=== PATIENT | female | born 1960 | race Caucasian/White ===

== ENCOUNTER 2019-11-29 06:33 | Emergency (ER) | payer BC, OTHER ==
[2019-11-29 06:41] VITALS: BP 151/82; PULSE 90; RESP 18; TEMP 98
[2019-11-29] MEDS ORDERED: LIDOCAINE 1% INJ 10MG/ML (20 ML MDV) SQ ONE (06:47)
[2019-11-29] MEDS ORDERED: DIPH,PERTUS(ACELL)TETVAC-LF 0.5 ML VIAL IM ONE (06:47)
--- NOTE | 2019-11-29 07:12 | ED ---
Wound/Laceration HPI - General Chief Complaint: Wound/Laceration Stated Complaint: hand lac Time Seen by Provider: 11/29/19 06:42 Source: patient, RN notes reviewed Mode of arrival: ambulatory Limitations: no limitations - History of Present Illness Initial Comments: This is a 59-year-old female presents emergency Department with chief complaint of left hand laceration. Patient states that she was using a picker box operator and states that she cut through a box and into her hand. Patient is right-hand dominant she is unsure when her last tetanus was. Patient denies any decreased range of motion or paresthesias. Patient denies any other injuries at this time. - Related Data Home Medications Medication Instructions Recorded Confirmed No Known Home Medications 06/20/14 06/20/14 Allergies Allergy/AdvReac Type Severity Reaction Status Date / Time No Known Allergies Allergy Verified 06/20/14 09:47 Review of Systems ROS Statement: Those systems with pertinent positive or pertinent negative responses have been documented in the HPI. ROS Other: All systems not noted in ROS Statement are negative. Past Medical History Additional Past Medical History / Comment(s): LOOSE BOWEL MOVEMENTS History of Any Multi-Drug Resistant Organisms: None Reported Past Surgical History: Orthopedic Surgery Additional Past Surgical History / Comment(s): LEFT KNEE ARTHROSCOPY Past Anesthesia/Blood Transfusion Reactions: No Reported Reaction, Motion Sickness Past Psychological History: No Psychological Hx Reported Smoking Status: Former smoker Past Alcohol Use History: None Reported Past Drug Use History: None Reported General Exam Limitations: no limitations General appearance: alert, in no apparent distress Head exam: Present: atraumatic, normocephalic, normal inspection Respiratory exam: Present: normal lung sounds bilaterally. Absent: respiratory distress, wheezes, rales, rhonchi, stridor Cardiovascular Exam: Present: regular rate, normal rhythm, normal heart sounds. Absent: systolic murmur, diastolic murmur, rubs, gallop, clicks Extremities exam: Present: other (Left hand thenar eminence region there is 4 cm laceration patient has full strength neurovascular intact there is no tendon involvement. Cap refill less than 2 seconds) Course Vital Signs 11/29/19 06:36 Temperature 98 F Pulse Rate 90 Respiratory 18 Rate Blood Pressure 151/82 O2 Sat by Pulse 96 Oximetry Procedures - Laceration Laceration #1 Consent Obtained: verbal consent Site: hand (Left hand thenar eminence region) Size (cm): 4 Description: linear Depth: simple, single layer Anesthetic Used: lidocaine 1%, without epi Anesthesia Technique: local infiltration Amount (mls): 7 Pre-repair: wound explored, irrigated extensively, deep structures intact Type of Sutures: nylon Size of Sutures: 4-0 Number of Sutures: 8 Technique: simple, interrupted Patient Tolerated Procedure: well, no complications Medical Decision Making - Medical Decision Making Patient had a simple laceration to left hand, tetanus was updated, it was closed with no comp patients using sutures. Wound care and return parameters were given. Disposition Clinical Impression: Laceration of left hand Disposition: HOME SELF-CARE Condition: Stable Instructions (If sedation given, give patient instructions): Care For Your Stitches (ED), Laceration (ED) Additional Instructions: Have sutures removed in 10-14 days.Please return to the Emergency Department if symptoms worsen or any other concerns. Is patient prescribed a controlled substance at d/c from ED?: No Referrals: Ines Bejarano MD [Primary Care Provider] - 1-2 days Time of Disposition: 07:12
== END 2019-11-29 07:40 | disposition home or self-care (01) ==
LOC: EC 06:33
DX: S61.412A Laceration without foreign body of left hand, initial encounter (principal); Z87.891 Personal history of nicotine dependence; Z23 Encounter for immunization; W26.0XXA Contact with knife, initial encounter; Y93.89 Activity, other specified
CPT/HCPCS: 90715; 99282; 12002; 90471; J2001

== ENCOUNTER → 2020-12-06 | Outpatient (CLI) | payer OTHER ==
--- NOTE | 2020-12-06 12:33 | EST ---
EXERCISE STRESS AGE: 60 SEX: Female HT: 5'7" WT: 230 lbs. PROTOCOL: Dontrell STAGE: 3 DURATION OF EXERCISE: 9 minutes HEART RATE REST: 82 BLOOD PRESSURE REST: 148/79 MAXIMUM HEART RATE ACHIEVED: 164 MAXIMUM BLOOD PRESSURE: 196/51 85% MPHR: 133 100% MPHR: 159 METS: 10.3 INDICATIONS: Evaluate for CAD in a patient with chest pain. CLINICAL INFORMATION: Baseline EKG revealed normal sinus rhythm with nonspecific ST-T abnormality. Patient walked on a standard Dontrell protocol for 9 minutes and achieved a maximal heart rate of 164 beats per minute. The patient did not have any significant symptoms. As she exercised, patient developed atrial fibrillation which was paroxysmal, self-limiting, but lasted for about 1 or 2 minutes in the exercise and then she went back into sinus rhythm. Nonspecific ST-T changes were noted. Peak blood pressure was 196/51. By EKG criteria, this is an inconclusive stress test because of nonspecific ST-T changes to begin with and paroxysmal atrial fibrillation during the stress test. At the end of the test, she was back in sinus rhythm. She had no significant symptoms. FINAL IMPRESSION: 1. By EKG criteria, this is considered an inconclusive stress test with fair exercise capacity. 2. Paroxysmal episodes of atrial fibrillation were noted during exercise. 3. The patient will benefit from a 24 hour Holter monitor for further surveillance. MMODL / IJN: [id number] /
== END | disposition home or self-care (01) ==
LOC: RADNMMAIN 08:44
PROVIDERS: ATTEND Family Medicine
DX: I48.0 Paroxysmal atrial fibrillation (principal)
CPT/HCPCS: 93017

== ENCOUNTER → 2021-04-17 | Outpatient (CLI) | payer OTHER ==
--- NOTE | 2021-04-19 13:41 | MM ---
Reason for exam: screening (asymptomatic). Last mammogram was performed 5 years and 2 months ago. History: Patient is postmenopausal. Family history of breast cancer in mother at age 50. Took hormonal contraceptives for 6 years. Physical Findings: A clinical breast exam by your physician is recommended on an annual basis and results should be correlated with mammographic findings. MG 3D Screening Mammo W/Cad Bilateral CC and MLO view(s) were taken. Prior study comparison: February 23, 2016, bilateral MG 3d screening mammo w/cad. The breast tissue is almost entirely fat. No significant changes when compared with prior studies. ASSESSMENT: Benign, BI-RAD 2 RECOMMENDATION: Routine screening mammogram of both breasts in 1 year.
--- NOTE | 2021-04-23 13:00 | BD ---
EXAMINATION TYPE: Axial Bone Density DATE OF EXAM: 04/17/2021 COMPARISON: NONE CLINICAL HISTORY: Osteoporosis Height: 67 Weight: 224.7 FRAX RISK QUESTIONS: Alcohol (3 or more units per day): no Family History (Parent hip fracture): no Glucocorticoids (More than 3mos): no (Ex: prednisone, prednisolone, methylprednisolone, dexamethasone, and hydrocortisone). History of Fracture in Adulthood: no Secondary Osteoporosis: 1. Type 1 Diabetes: no 2. Hyperthyroidism: no 3. Menopause before 45: no 4. Malnutrition: yes 5. Chronic liver disease: no Rheumatoid Arthritis: no Current Tobacco Use: no RISK FACTORS HISTORY OF: Surgery to Spine/Hip(right/left)/Wrist (right/left): no Family History of Osteoporosis: no Active: yes Diet low in dairy products/other sources of calcium: no Postmenopausal woman: age 45 Lost more than 2 inches in height since high school: no MEDICATIONS: balsalazide, paxil, iron Additional History: EXAM MEASUREMENTS: Bone mineral densitometry was performed using the [employer] System. Bone mineral density as measured about the Lumbar spine is: ----- L1-L4(G/cm2): 1.134 T Score Values are as follows: ----- L2: -0.6 ----- L3: 0.0 ----- L4: 0.1 ----- L1-L4: -0.4 Bone mineral density : baseline Bone mineral density about the R hip (g/cm2): 0.903 Bone mineral density about the L hip (g/cm2): 0.913 T Score values are as follows: -----R Neck: -1.0 -----L Neck: -0.9 -----R Total: -0.1 -----L Total: -0.4 Bone mineral density : baseline IMPRESSION: Osteopenia (T Score between -2.5 and -1). There is slightly increased risk of fracture and the patient may be considered for treatment. Re-Screen 2-5 years. NOTE: T-SCORE=SD OF THE YOUNG ADULT MEAN. MTDD
== END | disposition home or self-care (01) ==
LOC: RADMAMWWP 09:33
PROVIDERS: ATTEND Family Medicine
DX: Z12.31 Encounter for screening mammogram for malignant neoplasm of breast (principal); Z78.0 Asymptomatic menopausal state; Z80.3 Family history of malignant neoplasm of breast; M85.80 Other specified disorders of bone density and structure, unspecified site
CPT/HCPCS: 77063; 77067; 77080

== ENCOUNTER 2021-05-11 10:11 | Day surgery (SDC) | payer OTHER ==
[2021-05-09 12:50] VITALS: BMI 34.4
[~2021-05-11 10:11] MED LIST: LACTATED RINGERS 1,000 ML IV SCH
[2021-05-11 10:34] VITALS: RESP 16; TEMP 97.5
[2021-05-11] MEDS ORDERED: LIDOCAINE 1% INJ 10MG/ML (20 ML MDV) ONE (11:29)
[2021-05-11] MEDS ORDERED: PROPOFOL 10 MG/ML 20 ML VIAL IV ONE (11:29)
--- NOTE | 2021-05-11 12:08 | P.PCN ---
Date of Procedure: 05/11/21 Procedure(s) Performed: BRIEF HISTORY: Patient is a he [id number] pleasant white female scheduled for an elective colonoscopy as a part of surveillance of ulcerative colitis diagnosed in 2013. She remains in clinical remission. She is scheduled for a surveillance colonoscopy today. PROCEDURE PERFORMED: Colonoscopy with biopsy and snare polypectomy. PREOPERATIVE DIAGNOSIS: Surveillance of ulcerative colitis diagnosed in 1999. IV sedation per Anesthesia. PROCEDURE: After informed consent was obtained, the patient, was brought into the endoscopy unit. IV sedation was administered by Anesthesia under continuous monitoring. Digital rectal examination was normal. Initially the Olympus CF-160 flexible video colonoscope was then inserted in the rectum, gradually advanced into the cecum without any difficulty. Careful examination was performed as the scope was gradually being withdrawn. Ileocecal valve and the appendiceal orifice were visualized and appeared normal. Prep was excellent. Mucosa of the cecum, ascending colon, transverse colon, appeared normal. In the transverse colon there was a 5-6 mm a polyp that was removed by snare polypectomy. In the sigmoid colon there was a 5 mm polyp that was removed by snare polypectomy. There was active colitis noted in the rectum consistent with proctitis and biopsies were done from this area. Also random biopsies were done at an at every 10 cm intervals the cecum to rectum. In the rectum there were 3 polyps measuring between 1 cm and 2 cm in size which were removed by snare polypectomy. Biopsies were also done from the rectum. rectum appeared normal. Retroflexion was performed in the rectum and no lesions were seen. The patient tolerated the procedure well. IMPRESSION: 1 cm and 2 cm polyp noted in the rectum status post polypectomy 5 mm sigmoid polyp status post polypectomy 5 mm transverse colon polyp status post polypectomy Mild active proctitis RECOMMENDATIONS: Findings of this examination were discussed with the patient as well as a family. She was advised to follow with the biopsy results. If the biopsy does not show any evidence of dysplasia she can have a repeat colonoscopy in 2 years.
[2021-05-11 12:15] VITALS: BP 134/86; PULSE 62
== END 2021-05-11 12:29 | disposition home or self-care (01) ==
LOC: ORWHC2ENDO 10:11
PROVIDERS: ATTEND Internal Medicine Gastroenterology
DX: K51.90 Ulcerative colitis, unspecified, without complications (principal); D12.3 Benign neoplasm of transverse colon; D12.5 Benign neoplasm of sigmoid colon; K62.89 Other specified diseases of anus and rectum; Z86.010 Personal history of colon polyps
CPT/HCPCS: 45380; 45385; 88305; J2001; J2704

== ENCOUNTER → 2022-08-14 | Outpatient (CLI) | payer OTHER ==
--- NOTE | 2022-08-15 08:55 | MM ---
Reason for Exam: Screening (asymptomatic). Last mammogram was performed 1 year(s) and 4 month(s) ago. Patient History: Menarche at age 15. First Full-Term at age 20. Postmenopausal. Patient used Hormonal Contraceptives for 6 years. Niece had breast cancer, age 38. Mother had breast cancer, age 50. Risk Values: Angy 5 year model risk: 2.7%. NCI Lifetime model risk: 11.4%. Prior Study Comparison: 08/13/2011 Bilateral Diagnostic Mammogram, [facility]. 02/23/2016 Bilateral Screening Mammogram, [facility]. 04/17/2021 Bilateral Screening Mammogram, [facility]. Tissue Density: There are scattered fibroglandular densities. Findings: Analyzed By CAD. There is no suspicious group of microcalcifications or new suspicious mass in either breast. Overall Assessment: Negative, BI-RAD 1 Management: Screening Mammogram of both breasts in 1 year. A clinical breast exam by your physician is recommended on an annual basis and results should be correlated with mammographic findings. Electronically signed and approved by: Ezra Hebert M.D. Radiologis
== END | disposition home or self-care (01) ==
LOC: RADMAMWWP 08:32
PROVIDERS: ATTEND Family Medicine
DX: Z12.31 Encounter for screening mammogram for malignant neoplasm of breast (principal); Z78.0 Asymptomatic menopausal state; Z80.3 Family history of malignant neoplasm of breast
CPT/HCPCS: 77063; 77067

== ENCOUNTER → 2023-08-19 | Outpatient (CLI) | payer OTHER ==
--- NOTE | 2023-08-19 21:06 | MM ---
Reason for Exam: Screening (asymptomatic). Last screening mammogram was performed 12 month(s) ago. Patient History: Menarche at age 15. First Full-Term at age 20. Postmenopausal. Patient used Hormonal Contraceptives for 6 years. Niece had breast cancer, age 38. Mother had breast cancer, age 50. Risk Values: Angy 5 year model risk: 2.8%. NCI Lifetime model risk: 11.1%. Prior Study Comparison: 02/23/2016 Bilateral Screening Mammogram, [facility]. 04/17/2021 Bilateral Screening Mammogram, [facility]. 08/14/2022 Bilateral MG 3D screening mammo w/cad, [facility]. Tissue Density: There are scattered fibroglandular densities. Findings: Analyzed By CAD. There is no suspicious group of microcalcifications or new suspicious mass in either breast. Overall Assessment: Negative, BI-RAD 1 Management: Screening Mammogram of both breasts in 1 year. . Patient should continue monthly self-breast exams. A clinical breast exam by your physician is recommended on an annual basis. This exam should not preclude additional follow-up of suspicious palpable abnormalities. Note on Angy scores and lifetime risk: 1. A Angy score greater than 3% is considered moderate risk. If this is the case, consider specialist referral to assess eligibility for a risk reducing agent. 2. If overall lifetime risk for the development of breast cancer is 20% or higher, the patient may qualify for future screening with alternating mammogram and breast MRI. Electronically signed and approved by: Rosa Salinas M.D. Radiologist
== END | disposition home or self-care (01) ==
LOC: RADMAMWWP 06:55
PROVIDERS: ATTEND Family Medicine
DX: Z12.31 Encounter for screening mammogram for malignant neoplasm of breast (principal); Z78.0 Asymptomatic menopausal state; Z80.3 Family history of malignant neoplasm of breast
CPT/HCPCS: 77063; 77067

== ENCOUNTER → 2024-09-07 | Outpatient (CLI) | payer MEDICARE, OTHER ==
--- NOTE | 2024-09-09 17:39 | MM ---
Reason for Exam: Screening (asymptomatic). Last screening mammogram was performed 12 month(s) ago. Patient History: Menarche at age 15. First Full-Term at age 20. Postmenopausal. Patient used Hormonal Contraceptives for 6 years. Niece had breast cancer, age 38. Mother had breast cancer, age 50. Risk Values: Angy 5 year model risk: 2.9%. NCI Lifetime model risk: 10.7%. Prior Study Comparison: 04/17/2021 Bilateral Screening Mammogram, [facility]. 08/14/2022 Bilateral MG 3D screening mammo w/cad, [facility]. 08/19/2023 Bilateral MG 3D screening mammo w/cad, [facility]. Tissue Density: There are scattered areas of fibroglandular density. Findings: Analyzed By CAD. The pattern is symmetrical. No significant interval change No suspicious groups of microcalcifications, spiculated or lobular masses, architectural distortion or other secondary signs of malignancy are mammographically apparent. Overall Assessment: Benign, BI-RAD 2 Management: Screening Mammogram of both breasts in 1 year. A negative mammogram report should not preclude additional follow up of suspicious palpable abnormalities. Patient should continue monthly self breast exam. A clinical breast exam by your physician is recommended on an annual basis and results should be correlated with mammographic findings. Note on Angy scores and lifetime risk: 1. A Angy score greater than 3% is considered moderate risk. If this is the case, consider specialist referral to assess eligibility for a risk reducing agent. 2. If overall lifetime risk for the development of breast cancer is 20% or higher, the patient may qualify for future screening with alternating mammogram and breast MRI. [facility], , 09/09/2024 5:37 PM. Electronically signed and approved by: Talat Castaneda D.O. Radiologis
== END | disposition home or self-care (01) ==
LOC: RADMAMWWP 07:03
PROVIDERS: ATTEND Family Medicine
DX: Z12.31 Encounter for screening mammogram for malignant neoplasm of breast (principal); Z78.0 Asymptomatic menopausal state; Z80.3 Family history of malignant neoplasm of breast; R92.323 Mammographic fibroglandular density, bilateral breasts
CPT/HCPCS: 77063; 77067